=== PATIENT | female | born 1990 | race Caucasian/White ===

== ENCOUNTER 2019-04-28 20:00 | Inpatient (IN) | payer OTHER, SELFPAY ==
[2019-04-28 20:35] VITALS: BP 138/85
[2019-04-29 00:49] LABS: Add Manual Diff / Slide Review NO; Basophils Absolute Auto 100 /uL (0-100); Basophils Percent Auto 0.6 % (0-2); Eosinophils Absolute Auto 100 /uL (0-450); Eosinophils Percent Auto 0.8 % (2-4); Hematocrit 41.3 % (36-46); Hemoglobin 14.1 g/dL (12.0-16.0); Lymphocytes Absolute Auto 2300 /uL (1100-4500); Lymphocytes Percent Auto 18.3 % (25-40); Mean Corpuscular Hemoglobin 31.1 PG (26-34); Mean Corpuscular Volume 91.2 fL (80-100); Monocytes Absolute Auto 800 /uL (0-900); Monocytes Percent Auto 6.5 % (3-14); Neutrophils Absolute Auto 9200 /uL (1500-7000); Neutrophils Percent Auto 73.8 % (50-75); Platelet Count 157 X10^3/uL (150-400); Red Blood Cell Count 4.53 X10^6/uL (4.0-5.2); Red Cell Distribution Width 13.4 % (11.6-14.8); White Blood Cell Count 12.4 X10^3/uL (4.5-11.0)
[2019-04-29] MEDS: miSOPROStoL 25 MCG TABLET VAG (03:11)
--- NOTE | 2019-04-29 09:13 | PM.OBHP.1 ---
OB HPI Date/Time Date of admission: 04/28/19 Date Patient Seen: 04/29/19 Time Patient Seen: 07:30 History of Present Condition Chief complaint: induction : 1 Para: 0 Estimated Date of Delivery: 04/21/19 Estimated Gestational Age (weeks): 41w1d Narrative: Dolores Love is a 28 year old Indications Indication for induction OB: post dates History of Present care: good care Dating criteria: LMP confirmed by 1st trimester US Ultrasounds: normal 1st trimester US and normal mid trimester US Obstetrical complications: none Medical complications: none Preadmission Labs Blood type: A (+) positive -: Antibody screen: negative, GBS status: negative, HBsAG: negative, HIV: negative and RPR/VDLR: negative -: Chlamydia screen: not detected and Gonorrhea screen: not detected -: Rubella: immune and Varicella: immune HCT: 35.8 HCAB: negative Quad screen: Normal 1 hr GTT: 114 Evaluation Evaluation Baseline heart rate: 135 Variability: Moderate (11-25) monitor accelerations: Present monitor decelerations: Absent Contraction Frequency (minutes): 3 Uterine Contraction Intensity: Moderate Category of Tracing: I Cervical dilation (cm): 1 Cervical effacement (%): 50 station: -3 Laboratory results: Laboratory Tests 04/28/19 04/28/19 23:10 23:10 WBC 12.4 H RBC 4.53 Hgb 14.1 Hct 41.3 MCV 91.2 MCH 31.1 MCHC 34.0 RDW 13.4 Plt Count 157 Neut % (Auto) 73.8 Lymph % (Auto) 18.3 L [place] % (Auto) 6.5 Eos % (Auto) 0.8 L Baso % (Auto) 0.6 Neut # (Auto) 9200 H Lymph # (Auto) 2300 [place] # (Auto) 800 Eos # (Auto) 100 Baso # (Auto) 100 Blood Type A Positive Antibody Screen Negative PFSH Medical History (Updated 04/04/19 @ 15:20 by Lesley Farias RN) Allergic rhinitis (Acute) Generalized anxiety disorder (Acute) TMJ syndrome (Acute) Vertigo (Acute) Surgical History (Updated 04/04/19 @ 12:10 by Lesley Farias RN) S/P tympanotomy with insertion of tube (Acute ~1993) Social History marital status: household members: spouse pets and animals: Yes (Dog) education level: college (some college) 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.) current occupational exposures/hazards: No special cassidy needs: No Smoking Status: Never smoker alcohol intake: former substance use type: does not use Meds Home Medications and Allergies Home Medications Medication Instructions Recorded Confirmed Type prenat.vits,stone,ltl-goij-zfyee 1 tab PO DAILY 04/04/19 04/28/19 History Allergies Allergy/AdvReac Type Severity Reaction Status Date / Time Penicillins Allergy Intermediate Hives - Verified 04/04/19 12:29 full body shellfish derived Allergy Intermediate Hives to Verified 04/04/19 12:29 skin; Nausea seasonal allergy Allergy Intermediate Uncoded 04/04/19 11:45 Exam Narrative Exam Narrative: Gen: NAD, sitting comfortably in bed, appears well CV: RRR, no murmurs Resp: clear to auscultation bilaterally Abd: soft, nondistended, gravid, nontender Ext: trace edema Objective Labs Result Diagrams: 04/28/19 23:10 Labs: Laboratory Results - last 24 hr 04/28/19 04/28/19 23:10 23:10 WBC 12.4 H RBC 4.53 Hgb 14.1 Hct 41.3 MCV 91.2 MCH 31.1 MCHC 34.0 RDW 13.4 Plt Count 157 Neut % (Auto) 73.8 Lymph % (Auto) 18.3 L [place] % (Auto) 6.5 Eos % (Auto) 0.8 L Baso % (Auto) 0.6 Neut # (Auto) 9200 H Lymph # (Auto) 2300 [place] # (Auto) 800 Eos # (Auto) 100 Baso # (Auto) 100 Blood Type A Positive Antibody Screen Negative Assessment and Plan Assessment and Plan Assessment and Plan narrative: 28yo at 41w1d here for IOL for post-dates. No complications with . Pt was having nonpainful contractions at admission. She did have two prolonged decels overnight, with good recovery after oxygen and position changes. Pt now with reassuring FHT. Received single dose of cytotec overnight, with minimal cervical change. GBS negative, Rh positive. - Expectant management, anticipate - After discussion of risks vs benefits of different options including escalante catheter and pitocin - would not recommend cervidil/cytotec at this time due to frequency of contractions and FHT - decision made to proceed with escalante cather. Cather was inserted manually without any complications. Filled with 60cc of saline. Plan to leave in place, with gentle traction, for 12 hours or until falls out. Will start low-dose pitocin after pt eats breakfast. - FHT currently reassuring. Will keep with continuous monitoring due to prolonged decels. - Nitrous or epidural for pain control when pt desires. Encouraged to not get epidural while escalante in place, as still in early labor. - GBS negative, no antibiotic prophylaxis indicated
[2019-04-29] MEDS: OXYTOCIN PREMIX 30 UNIT/500 ML PLAST..BAG IV (10:43)
[2019-04-29] MEDS: LACTATED RINGERS 1,000 ML 100 ML IV ×3 (10:43→17:49)
--- NOTE | 2019-04-29 16:40 | PM.OBPNLAB ---
Date/Time Date Patient Seen: 04/29/19 Time Patient Seen: 04:15 Pain Control Pain control: tolerating well Pelvic Exam Dilation (cm): 5 Effacement (%): 60 station: -3 Amniotic membrane status: Ruptured Contractions Monitor mode: External Pitocin rate (mU/min): 4 Contraction frequency (min): 3 Contraction duration (min): 1 Contraction pattern: Regular Contraction intensity: Strong/Firm Status status: Category l Heart Rate Baseline: 130 Monitor Accelerations: Present Monitor Decelerations: Absent Monitor Variability: Moderate Assessment and Plan Comments: 28yo at 41w1d here for IOL for post-dates. No complications with . S/P Cytotec x1 overnight, then escalante this morning that fell out after approximately 6 hours. Now on pitocin. Pt with recurrent variable decels, with FHT now reassuring after position changes, oxygen, and decrease in pitocin. SROM at 15:30 with clear fluid. GBS negative, Rh positive. - Expectant management, anticipate . Fetus with virtually no descent thus far. Maternal pelvis feels adequate, but pt is very tense. - Continue pitocin, titrate as tolerated - FHT currently reassuring. May need IUPC with amnioinfusion if variable decels recurring - Nitrous or epidural for pain control when pt desires. - GBS negative, no antibiotic prophylaxis indicated
--- NOTE | 2019-04-29 21:38 | P.PNOB_ITS ---
Date/Time Date Patient Seen: 04/29/19 Time Patient Seen: 21:00 Pain Control Pain control: epidural Pelvic Exam Dilation (cm): 6 Effacement (%): 80 station: -1 Amniotic membrane status: Ruptured Contractions Monitor mode: External Contraction frequency (min): 4 Contraction pattern: Regular Contraction intensity: Strong/Firm Status status: Category ll Heart Rate Baseline: 130 Monitor Accelerations: Absent Monitor Decelerations: Late Monitor Variability: Minimal Comments: late, early and variable decels Assessment and Plan Comments: 28yo at 41w1d here for IOL for post-dates. No complications with . S/P one dose of cytotec overnight, escalante catheter that fell out after approximately 6 hours, and then pitocin. Pt with recurrent variable decels, and pitocin titrated down. IUPC placed to consider amnioinfusion, however variable decels resolved. Pt noted to have very inadequate contraction pattern. Attempted to titrate pitocin back up, however pt with prolonged deceleration. Pt then with minimal variability for prolonged period of time, with early, late, and variable decels intermixed. FHT have persistently been nonreassuring. No cervical change, and unable to restart pitocin. Due to nonreassuring heart tones, decision was made to proceed with primary c- section. Pt and her are in agreement with the plan. Risks vs benefits of the surgery were discussed. Pt is aware of risk of infection, bleeding, potential damage to other organs including bowel and bladder, and injury to fetus. The pt is agreeable to blood transfusion if medicated. Consent was signed and placed in her chart. Due to penicillin allergy with full-body hives, the pt will receive Gentamicin and Clindamycin for antibiotic prophylaxis before surgery.
--- NOTE | 2019-04-29 21:38 | PM.PREOP ---
Pre-operative Note Interval Note History & Physical reviewed/Exam performed by Physician: Yes Changes to H&P: No
[2019-04-29] MEDS: CLINDAMYCIN 900 MG/50 ML PIGGYBACK 50 MG IV (22:02)
[2019-04-29] MEDS: GENTAMICIN 290 MG in SODIUM CHLORIDE 0.9% 100 ML 107.25 ML IV (22:30)
--- NOTE | 2019-04-29 22:39 | SUR.OPER ---
Supine on Padded OR bed, head on pillow, safety belt at thigh, arms secured on padded arm boards at <90 degrees abduction. Bump under right buttock. Legs uncrossed with pillow under knees, gel pad to heels, tape over blanket to lower legs.
[2019-04-29] MEDS: METHYLERGONOVINE 0.2 MG/ML VIAL IM (22:52)
[2019-04-29] MEDS: ACETAMINOPHEN IV 1,000 MG/100 ML VIAL 400 MG IV (22:58)
--- NOTE | 2019-04-29 23:08 | SUR.OPER ---
7pound 2ounce viable baby boy born at 1041, placenta delivered at 1043, 9/9 Cord blood and placenta sent with OB RN
[2019-04-29 23:30] VITALS: BP 131/73; PULSE 103; RESP 13; TEMP 36.8; O2SAT 99
[2019-04-29 23:33] VITALS: BP 132/81; PULSE 95; RESP 14; O2SAT 99
[2019-04-29 23:37] VITALS: BP 128/80; PULSE 96; RESP 16; O2SAT 99
[2019-04-29 23:42] VITALS: BP 126/88; PULSE 96; RESP 16; O2SAT 97
--- NOTE | 2019-04-29 23:42 | P.OP_ITS ---
Operative Date/Time/Diagnoses Date of procedure: 04/29/19 Time of procedure: 22:30 Pre-op diagnosis: 41w1d gestation GBS negative Nonreassuring heart tones Post-op diagnosis: same Procedure & Clinicians Procedure: Primary Same procedure as scheduled: Yes Indications: Nonreassuring heart tones Surgeon: Dionne Mcghee Registry Np: Charu Lipscomb Click Yes if Unassisted: No Anesthesia Type: Epidural Operative Notes Findings: Normal uterus, ovaries, and tubes Closure Type: primary Specimen(s): none sent Applied: catheter Estimated Blood Loss (mL): 750 Blood products transfused: none Procedure in detail: OPERATIVE COURSE: The patient was taken to the operating room where epidural anesthesia was bolused. She was then prepared and draped in the normal sterile fashion in the dorsal supine position with a leftward tilt. Anesthesia was tested and found to be adequate. A Pfannensteil skin incision was then made with the scalpel and carried through to the underlying layer of fascia with the scalpel. The fascia was incised in the midline and the incision extended laterally with the Beaulieu scissors. The superior aspect of the fascial incision was then grasped with Les clamps, elevated, and the underlying rectus muscles dissected off bluntly and sharply where needed. Attention was then turned to the inferior aspect of the incision which, in a similar fashion, was grasped, tented up with Les clamps, and the rectus muscle dissected off bluntly and sharply with Beaulieu scissors. The rectus muscles were then in the midline, and the peritoneum was identified and entered bluntly. The peritoneal incision was then extended with good visualization of the bladder. The bladder blade was then inserted and the vesicouterine peritoneum identified, grasped with pick-ups and entered sharply with the Metzenbaum scissors. The incision was then extended laterally and the bladder flap created digitally. The bladder blade was then reinserted and the lower uterine segment incised in a transverse fashion with the scalpel. The uterine incision was then extended superolaterally by pulling superolaterally on both sides. The bladder blade was removed the infant's head was flexed out of OA position and delivered atraumatically. There was no nuchal cord. The baby cried spontaneously. The nose and mouth were suctioned with bulb suction and the cord was clamped and cut. The was handed off to the waiting nursing staff. Cord blood was collected for Rh status. The placenta was then delivered with gentle cord traction. The uterus was then cleared of all clots and debris. The uterine incision was repaired with O- Vicryl in a running, locked fashion. A second layer of the same suture was used to obtain excellent hemostasis, with an extra figure-of eight used at the left side of the incision. The uterus was noted to have moderate atony, and methergine was given with good response. The gutters were cleared of all clots. Hysterotomy was investigated and found to be hemostatic. The bladder flap was closed with 2-O Chromic. The peritoneum was closed with 3-O Vicryl. The fascia was reapproximated with O Vicryl in a running fashion. The subcutaneous tissue was reapproximated with 3-O Vicryl. The skin was closed with 4-O Vicryl. When closing the subcutaneous tissue, the pts BP was noted to be elevated to > 180 systolic. She received 2x 10mg Labetalol with good response. Her BP then remained in normal range. This was in part thought to be due to her shaking from the epidural and delivery. ROM APPEARANCE: Clear BABY A DELIVERY TIME: 22:41 BABY A OUTCOME: Viable BABY A SEX: Male BABY A WEIGHT: 7lb1.6oz, 3220g BABY A NUCHAL CORD: No BABY A # CORD VESSELS: 3 BABY A 1 MINUTE: 9 BABY A 5 MINUTES: 9 PLACENTA DELIVERY TIME: 22:42 PLACENTAL DELIVERY TYPE: Spontaneous PLACENTA APPEARANCE: Intact SPONGE AND NEEDLE COUNTS: Correct x3. DRESSING: Aquacel ANTICOAGULATION: SCDs applied prior to Surgery Preop antibiotics given (see MAR). The patient was taken to recovery room having tolerated procedure well. Complications: none Post-operative Condition: stable Disposition: PACU Plan for aftercare: Normal postoperative care Monitor BPs closely. If persistently elevated, will need pre-eclampsia work-up.
[2019-04-29 23:47] VITALS: BP 132/79; PULSE 97; RESP 16; TEMP 37.7; O2SAT 99
--- NOTE | 2019-04-30 00:03 | SUR.PHASEI ---
Stable pacu stay- to BC, left in stable condition.
[2019-04-30] MEDS: KETOROLAC 30 MG/ML VIAL IV ×2 (00:15→06:19)
[2019-04-30] MEDS: LACTATED RINGERS 1,000 ML 100 ML IV (03:03)
[2019-04-30 06:24] LABS: Hematocrit 31.4 % (36-46); Hemoglobin 10.7 g/dL (12.0-16.0)
[2019-04-30] MEDS: DOCUSATE 250 MG CAPSULE PO (09:42)
[2019-04-30] MEDS: LANOLIN OINT 7 GM 1 APPLIC TOP (09:43)
[2019-04-30] MEDS: OXYCODONE/ACETAMINOPHEN 5/325 TABLET 2 TAB PO (09:52)
[2019-04-30] MEDS: PRENATAL VIT,CALC/IRON/FOLIC 1 TABLET 1 TAB PO (09:56)
--- NOTE | 2019-04-30 11:30 | PM.OBPN.1 ---
Subjective - OB Subjective Date Patient Seen: 04/30/19 Time Patient Seen: 11:00 Interval history: Pt reports that she is overall doing well. She denies significant pain, primarily cramping from her uterus qi down. Her escalante remains in place - she has not yet ambulated or voided. She has passed flatus. She is with good latch, minimal nipple tenderness. Exam Vital Signs (past 8 hours): Oxygen Delivery Method Room Air Narrative Exam Narrative: Gen: NAD, sitting comfortably in bed, appears well CV: RRR, no murmurs Resp: clear to auscultation bilaterally Abd: soft, nondistended, appropriately tender to palpation, fundus firm and below the umbilicus, normoactive bowel sounds Ext: no edema Objective Labs Result Diagrams: 04/30/19 06:15 Labs: Laboratory Results - last 24 hr 04/30/19 06:15 Hgb 10.7 L Hct 31.4 L Assessment & Plan Plan Comments: 28yo POD #1 s/p primary for nonreassuring heart tones. Pt and baby both doing well. IV infiltrated overnight. - Transition to only PO pain medication. Received 2 doses Toradol. - Normal care - Encouraged ambulation today - Continue support Time Spent With Patient Time: Total time spent is greater than 50% in coordination of care (as documented) at patient's floor/unit and/or counseling patient: Time with patient: 25 - 35 minutes
[2019-04-30] MEDS: IBUPROFEN 600 MG TABLET PO ×3 (12:12→23:59)
[2019-04-30] MEDS: OXYCODONE/ACETAMINOPHEN 5/325 TABLET 1 TAB PO ×3 (14:10→22:01)
[2019-05-01] MEDS: OXYCODONE/ACETAMINOPHEN 5/325 TABLET 1 TAB PO ×4 (01:52→14:08)
[2019-05-01] MEDS: IBUPROFEN 600 MG TABLET PO ×2 (05:57→12:15)
[2019-05-01] MEDS: PRENATAL VIT,CALC/IRON/FOLIC 1 TABLET 1 TAB PO (08:25)
[2019-05-01] MEDS: DOCUSATE 250 MG CAPSULE PO (08:25)
--- NOTE | 2019-05-01 10:48 | PM.OBDS.1 ---
Discharge Providers Provider Date of admission: 04/28/19 20:00 Discharge Date: 05/01/19 Primary care physician: Magnolia Butler MD Consults: 04/30/19 00:15 Consult to [employer] Routine Comment: Discharge provider: Dionne Mcghee MD Summary Hospital Course Date Patient Seen: 05/01/19 Time Patient Seen: 10:30 Procedures: Primary Hospital Course: The pt presented for IOL for post-dates at 41w0d. She received one dose of cytotec overnight, and then a escalante catheter was placed that fell out after approximately 6 hours. The pt was then started on pitocin. The rate had to be continuously adjusted due to variable decels. IUPC was placed to consider amnioinfusion, however variable decels resolved. The pt noted to have a very inadequate contraction pattern. Attempts were made to titrate back up the pitocin, however FHT did not support this with minimal variability and a mixture of early, variable, and late decelerations. Due to this, the decision was made to proceed with primary . The surgery was without complications, and the pt delivered a viable baby boy at 22:41 with APGARs 9/9. At the end of surgery, the pts BP was noted to be elevated and she received a total of 20mg of IV Labetalol. Her BPs normalized, and remained in normal range for the remainder of her course. Elevated BPs were thought to be due to significant shaking at the end of surgery. , there were no complications. At the time of discharge she was voiding, passing flatus, and ambulating without difficulty. Her pain was adequately controlled. She was with good latch. Her lochia was appropriate. She will f/u in clinic in 1 week for incision check. Peripartum Data Infant Delivery Method: Section Procedures: Primary complications: none 1: Gender: Male Disposition of : home Status at Discharge Cognitive/behavioral status at discharge: oriented Functional status at discharge: independent ambulation Overall status at discharge: patient is progressing back to baseline Time Spent with Patient Time attestation: Total time spent providing and/or coordinating discharge services: Time spent: Greater than 30 minutes Objective Labs Result Diagrams: 04/30/19 06:15 Exam Vital Signs (past 8 hours): Oxygen Delivery Method Room Air Narrative Exam Narrative: Gen: NAD, sitting comfortably in bed, appears well CV: RRR, no murmurs Resp: clear to auscultation bilaterally Abd: soft, nondistended, appropriately tender to palpation, fundus firm and below the umbilicus, normoactive bowel sounds Ext: no edema Discharge Plan Discharge Plan Patient Disposition: Home Discharge orders & Medications Prescriptions: New acetaminophen 325 mg Tablet 650 mg PO Q6HR PRN (Reason: Fever/Mild Pain (1-3)) Qty: 60 RF: 0 oxycodone-acetaminophen 5-325 mg Tablet 1 tab PO Q4HR PRN (Reason: Pain, Moderate (4-6)) Qty: 30 RF: 0 ibuprofen 600 mg Tablet 600 mg PO Q6HR PRN (Reason: Fever/Mild Pain (1-3)) Qty: 60 RF: 0 docusate sodium 250 mg Capsule 250 mg PO DAILY Qty: 30 RF: 0 Vnx-K-Mohghj Cream 1 applic topical PRN PRN (Reason: ) Qty: 30 RF: 0 Continued prenat.vits,stone,shd-qnrh-upyif Tablet 1 tab PO DAILY RF: 0 Follow up/Referrals: Magnolia Butler MD [Primary Care Provider] - Dionne Mcghee MD [Physician] - 05/06/19 2:45 pm Diet/Activity/Treatments Diet: Regular Skin/Wound/Dressing Care Report to your healthcare provider any signs of infection, such as:: chills, fever, increased pain, unusual drainage and unusual redness Visit Report/Discharge Packet Instructions: DI for Stand Alone Forms: Discharge: Care Visit Report Forms: Patient Portal/API, Stroke Signs & Symptoms Discharge Data Primary Care Provider: Magnolia Butler
[2019-05-01 10:56] VITALS: BP 132/79; PULSE 97; RESP 16; TEMP 37.7
== END 2019-05-01 16:00 | disposition home or self-care (01) | DRG 788 ==
PROVIDERS: Admitting Provider Family Medicine; PCP Family Medicine; Visit Provider Family Medicine
PROC: 10D00Z1 Extraction of Products of Conception, Low, Open Approach (ICD-10-PCS; CPT 59514; principal; 2019-04-29 22:10)
DX: O48.0 Post-term pregnancy (principal); O63.0 Prolonged first stage (of labor); O36.8330 Maternal care for abnormalities of the fetal heart rate or rhythm, third trimester, not applicable or unspecified; Z3A.41 41 weeks gestation of pregnancy; Z37.0 Single live birth
CPT/HCPCS: 01967; 01968; 36415; 59050; 59200; 59514; 59515; 85014; 85018; 85025; 86850; 86900; 86901; J0131; J1885; J2210; J2590; J3010

== ENCOUNTER → 2022-03-11 15:15 | Outpatient (CLI) | payer OTHER, SELFPAY ==
[2022-03-11 15:30] LABS: Add Manual Diff / Slide Review NO; Basophils Absolute Auto 100 /uL (0-100); Basophils Percent Auto 0.6 % (0-2); Eosinophils Absolute Auto 100 /uL (0-450); Eosinophils Percent Auto 1.1 % (2-4); Hematocrit 35.4 % (36-46); Hemoglobin 12.1 g/dL (12.0-16.0); Lymphocytes Absolute Auto 2500 /uL (1100-4500); Lymphocytes Percent Auto 24.4 % (25-40); Mean Corpuscular HGB Conc 34.1 % (30-36); Mean Corpuscular Hemoglobin 30.7 PG (26-34); Mean Corpuscular Volume 89.9 fL (80-100); Monocytes Absolute Auto 400 /uL (0-900); Monocytes Percent Auto 3.8 % (3-14); Neutrophils Absolute Auto 7100 /uL (1500-7000); Neutrophils Percent Auto 70.1 % (50-75); Platelet Count 273 X10^3/uL (150-400); Red Blood Cell Count 3.94 X10^6/uL (4.0-5.2); Red Cell Distribution Width 13.2 % (11.6-14.8); White Blood Cell Count 10.1 X10^3/uL (4.5-11.0)
[2022-03-13 06:33] LABS: RPR Screen Non Reactive (Non Reactive)
[2022-03-14 08:08] LABS: Varicella IgG Antibody 307 index (Immune >165)
[2022-03-14 20:44] LABS: HIV 1 & 2 Ab/Ag 4th Gen Combo NEGATIVE (NEGATIVE); Hep C Virus Ab w/Reflex Quant NEGATIVE s/c (NEGATIVE); Hepatitis B Surface Antigen NEGATIVE s/c (NEGATIVE); Rubella Antibody IgG 4.4 IU/mL (>15)
== END ==
PROVIDERS: Referring Provider Obstetrics & Gynecology; Visit Provider Obstetrics & Gynecology
DX: Z34.81 Encounter for supervision of other normal pregnancy, first trimester (principal)
CPT/HCPCS: 36415; 80055; 86787; 86803; 86850; 86900; 86901; 87389

== ENCOUNTER → 2022-04-08 13:01 | Outpatient (CLI) | payer OTHER, SELFPAY ==
[2022-04-08 13:28] LABS: Specimen Label NATERA
[2022-04-08 14:31] LABS: Add Manual Diff / Slide Review NO; Basophils Absolute Auto 100 /uL (0-100); Basophils Percent Auto 0.6 % (0-2); Eosinophils Absolute Auto 100 /uL (0-450); Hemoglobin 12.1 g/dL (12.0-16.0); Lymphocytes Absolute Auto 2400 /uL (1100-4500); Lymphocytes Percent Auto 22.6 % (25-40); Mean Corpuscular HGB Conc 33.6 % (30-36); Mean Corpuscular Hemoglobin 30.9 PG (26-34); Mean Corpuscular Volume 91.8 fL (80-100); Monocytes Absolute Auto 600 /uL (0-900); Monocytes Percent Auto 5.2 % (3-14); Neutrophils Absolute Auto 7500 /uL (1500-7000); Neutrophils Percent Auto 70.6 % (50-75); Platelet Count 217 X10^3/uL (150-400); Red Blood Cell Count 3.92 X10^6/uL (4.0-5.2); Red Cell Distribution Width 13.7 % (11.6-14.8); White Blood Cell Count 10.7 X10^3/uL (4.5-11.0)
== END ==
PROVIDERS: Referring Provider Obstetrics & Gynecology; Visit Provider Obstetrics & Gynecology
DX: Z34.82 Encounter for supervision of other normal pregnancy, second trimester (principal); D64.9 Anemia, unspecified; Z34.81 Encounter for supervision of other normal pregnancy, first trimester; Z3A.12 12 weeks gestation of pregnancy
CPT/HCPCS: 36415; 81003; 85025; 87086

== ENCOUNTER → 2022-05-07 15:15 | Outpatient (CLI) | payer OTHER, SELFPAY ==
[2022-05-07 21:16] LABS: Urine N gonorrhoeae NOT DETECTED
[2022-05-07 22:01] LABS: Urine Chlamydia NOT DETECTED
== END ==
PROVIDERS: Visit Provider Obstetrics & Gynecology
DX: Z34.82 Encounter for supervision of other normal pregnancy, second trimester (principal); Z3A.16 16 weeks gestation of pregnancy
CPT/HCPCS: 87491; 87591

== ENCOUNTER → 2022-05-07 16:04 | Outpatient (CLI) | payer OTHER, SELFPAY ==
[2022-05-09 22:07] LABS: AFP Value 32.6 ng/mL (.); Gest Age on Col Date 16.3 weeks (.); Insulin Dep Diabetes No (.); OSBR Risk 1IN 10000 (.); Results Report (.); Test Results *Screen Negative* (.)
== END ==
PROVIDERS: Referring Provider Obstetrics & Gynecology; Visit Provider Obstetrics & Gynecology
DX: Z34.82 Encounter for supervision of other normal pregnancy, second trimester (principal); Z3A.16 16 weeks gestation of pregnancy
CPT/HCPCS: 82105; 87491; 87591

== ENCOUNTER → 2022-06-02 10:21 | Outpatient (CLI) | payer OTHER, SELFPAY ==
--- NOTE | 2022-06-02 10:22 | DI.US.S_ITS ---
PROCEDURE: US OB >= 14 WEEKS FETUS INDICATIONS: ANATOMY OUTSIDE/PRIOR DATING DATA: Last menstrual period (LMP): 01/13/2022. LMP-based estimated date of delivery (YOBANI): 10/20/2022. First dating scan (date and location): 03/11/2022. Estimated date of delivery (YOBANI) from first dating scan: 10/19/2022. The calculations are made using the clinical YOBANI of 10/20/2022. TECHNIQUE: Real-time scanning was performed of the fetus, with image documentation and biometric measurements. Endovaginal scanning: Not performed COMPARISON: [facility], , OB <= 14 WEEKS FETUS, 03/11/2022, 15:06. [facility], , OB <= 14 WEEKS FETUS, 04/08/2022, 12:56. FINDINGS: General: A single living intrauterine gestation is present. Presentation: Breech. Placenta: Placental position is posterior fundal , without previa. Amniotic fluid index: 9.2 cm, normal range is 5-24 cm. Single deepest vertical pocket is 3.0 cm. heart rate: 153 beats per minute. Maternal cervical canal: 4.3 cm long. Normal lower limit is 2.5 cm. biometrics: Biparietal diameter: 4.7 cm, 20 weeks 1 day Head circumference: 18.0 cm, 20 weeks 3 days Abdominal circumference: 15.7 cm, 20 weeks 6 days Femur length: 3.6 cm, 21 weeks 2 days Clinically estimated gestational age: 20 weeks 0 days Composite gestational age from present scan: 20 weeks 5 days Estimated weight and percentile: 386 g, 90th percentile Anatomic survey: Neuro: Ventricles are non-dilated at less than 10 mm. Cisterna magna is normal at 3-11 mm. Cerebellum is normal in size and morphology. Nuchal skin fold: Normal at less than 6 mm between 14-21 weeks gestational age. Face: Nose and lips, facial profile are normal. Spine: No evidence for spina bifida. Heart: 4-chambered heart is present, with normal ventricular outflow tracts. Diaphragm: Diaphragm is intact. Stomach: Left-sided stomach is present. Kidneys: No hydronephrosis. Normal is less than 5 mm in 2nd trimester, less than 7 mm in 3rd trimester. Cord: 3-vessel cord has orthotopic insertion. Bladder: Normal in size. Extremities: All 4 extremities identified. IMPRESSION: 1. Single living intrauterine . 2. Estimated weight is at the 90th percentile. 3. Normal 2nd trimester anatomy survey. No anatomic abnormalities detected at this time. We strive to produce accurate, complete, and clear reports of imaging services. To assist us in improving patient care, this report was composed using standard report templates and voice recognition software. Therefore, it may contain abnormal punctuation, insertions and/or omissions. Occasional wrong-word or sound-alike substitutions may occur. Though we review the report and make efforts to correct it, we do recommend that the report be read carefully in proper context to recognize any text inaccuracies. Dictated by: Julio Schwartz M.D. on 06/02/2022 at 18:08 Approved by: Julio Schwartz M.D. on 06/02/2022 at 18:13
== END ==
PROVIDERS: Referring Provider Obstetrics & Gynecology; Visit Provider Obstetrics & Gynecology
DX: Z34.92 Encounter for supervision of normal pregnancy, unspecified, second trimester (principal); Z3A.20 20 weeks gestation of pregnancy
CPT/HCPCS: 76811

== ENCOUNTER → 2022-07-29 14:22 | Outpatient (CLI) | payer OTHER, SELFPAY ==
[2022-07-29 16:31] LABS: Hematocrit 33.6 % (36-46); Hemoglobin 11.6 g/dL (12.0-16.0)
[2022-07-29 17:38] LABS: GTT (PREG) 1 Hour PP 50gm Dose 99 mg/dL (76-139)
== END ==
PROVIDERS: Referring Provider Obstetrics & Gynecology; Visit Provider Obstetrics & Gynecology
DX: Z34.82 Encounter for supervision of other normal pregnancy, second trimester (principal); Z3A.26 26 weeks gestation of pregnancy
CPT/HCPCS: 36415; 82950; 85014; 85018

== ENCOUNTER 2022-09-08 15:06 | Outpatient (CLI) | payer OTHER, SELFPAY ==
[2022-09-08 15:33] LABS: Appearance Urine UA CLEAR; Bilirubin Urine UA NEGATIVE (NEGATIVE); Color Urine UA YELLOW; Glucose Urine UA NEGATIVE (Negative); Ketones Urine UA TRACE (NEGATIVE); Leukocyte Esterase Urine UA NEGATIVE (NEGATIVE); Nitrite Urine UA NEGATIVE (Negative); Occult Blood Urine UA NEGATIVE (Negative); Protein Urine UA NEGATIVE (Negative); Specific Gravity Urine UA <=1.005 (1.000-1.035); Urobilinogen Urine UA 0.2 E.U./dL (0.2)
[2022-09-08 15:43] LABS: pH Urine UA 6.5 (4.5-8.0)
[2022-09-08 15:47] LABS: Bacteria Urine Occasional (0-1); Culture Indicated Urine Cult Not Indicated; RBC Urine None Seen (0-5/HPF); Squamous Epithelial Cell Urine 1-5 /HPF (0-5/HPF); WBC Urine 0-1/HPF (0-5/HPF)
--- NOTE | 2022-09-08 15:53 | PM.OBTRLD ---
Visit Information Visit Information Date of evaluation: 09/08/22 Primary OB Provider: Dolly Colon On-call OB Provider: Dionne Mcghee Comments/Additional reasons for admission: 32yo at 34w0d here for contractions. Pt reports having abdominal tightening with some back discomfort for the past 24hrs. The tightening is not painful. She had nausea and vomiting last night, none this morning. She is working on staying hydrated. She denies any vaginal bleeding, LOF. She is feeling her baby move regularly. [facility] Medical History (Updated 06/03/22 @ 11:29 by Gino Madrigal MD) Allergic rhinitis Anxiety Breast pain, left Generalized anxiety disorder Heart palpitations TMJ syndrome Vertigo Surgical History (Updated 03/12/22 @ 07:39 by Dolly Colon MD) S/P S/P tympanotomy with insertion of tube (~1993) Family History (Updated 02/27/22 @ 12:18 by Yancy Man RN) Mother Mitral valve prolapse Tachycardia Hyperlipidemia Brother Tachycardia Mitral valve prolapse Hyperlipidemia Family/Other Breast cancer Grandmother Metastatic cancer Grandfather Congestive heart failure Heart attack Lung disease Hyperlipidemia Family/Other Heart attack Social History marital status: number of children: 1 household members: spouse and children lives independently: Yes housing: house pets and animals: Yes (Dog) education level: college (some college) 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.) current occupational exposures/hazards: No special cassidy needs: No travel history: recent ([place]) seatbelt use: always water heater temp set < 120 deg: No (Will adjust ) working smoke detector in home: Yes fire extinguisher in home: Yes carbon monox detector in home: Yes firearms in home: No do you feel safe at home: Yes Smoking Status: Never smoker second hand exposure: No alcohol intake: former (rarely when not ) substance use type: does not use during the past year weight has: remained stable well-balanced diet: daily or most days daily servings fruits/ve-4 caffeine: Yes Type(s) of exercise: walking frequency: daily duration: 30-45 minutes/day Objective Labs Labs: Laboratory Results - last 24 hr 09/08/22 15:15 Urine Color Yellow Urine Appearance Clear Urine pH 6.5 Ur Specific [place] <=1.005 Urine Protein Negative Urine Glucose (UA) Negative Urine Ketones Trace H Urine Occult Blood Negative Urine Nitrate Negative Urine Bilirubin Negative Urine Urobilinogen 0.2 Ur Leukocyte Esterase Negative Urine RBC None seen Urine WBC 0-1/hpf Ur Squamous Epith Cells 1-5 /hpf Urine Bacteria Occasional (0-1) Ur Culture Indicated? Cult not indicated Evaluation Evaluation Baseline heart rate: 120 Variability: Moderate (11-25) monitor accelerations: Present Monitor Decelerations: Absent Category of Tracing: Reactive Diagnosis, Plan/Disposition Plan/Disposition Plan: 32yo at 34w0d here for contractions. They are not painful for the patient. Only 3 contractions on 30+ minutes of monitoring, still not painful for the patient. U/A without UTI. Stable for discharge home. Discussed hydration. OB Disposition: home
== END 2022-09-08 16:06 | disposition home or self-care (01) ==
LOC: OB 09-10 11:05
PROVIDERS: Referring Provider Family Medicine; Visit Provider Family Medicine
DX: O47.03 False labor before 37 completed weeks of gestation, third trimester (principal); Z3A.34 34 weeks gestation of pregnancy
CPT/HCPCS: 59025; 81001; G0378; G0379

== ENCOUNTER → 2022-10-01 11:19 | Outpatient (CLI) | payer OTHER, SELFPAY ==
[2022-10-02 10:26] LABS: Strep Grp B PCR NEG for Grp B Strep
== END ==
PROVIDERS: Visit Provider Obstetrics & Gynecology
DX: Z34.83 Encounter for supervision of other normal pregnancy, third trimester (principal); Z3A.37 37 weeks gestation of pregnancy
CPT/HCPCS: 87653

== ENCOUNTER 2022-10-13 05:54 | Inpatient (IN) | payer OTHER, SELFPAY ==
[2022-10-13 07:24] LABS: Add Manual Diff / Slide Review NO; Basophils Absolute Auto 0 /uL (0-100); Basophils Percent Auto 0.3 % (0-2); Eosinophils Absolute Auto 100 /uL (0-450); Hematocrit 35.4 % (36-46); Hemoglobin 12.1 g/dL (12.0-16.0); Lymphocytes Absolute Auto 1900 /uL (1100-4500); Lymphocytes Percent Auto 19.6 % (25-40); Mean Corpuscular HGB Conc 34.4 % (30-36); Mean Corpuscular Hemoglobin 30.9 PG (26-34); Monocytes Absolute Auto 700 /uL (0-900); Neutrophils Absolute Auto 7100 /uL (1500-7000); Neutrophils Percent Auto 72.1 % (50-75); Platelet Count 161 X10^3/uL (150-400); Red Blood Cell Count 3.93 X10^6/uL (4.0-5.2); Red Cell Distribution Width 14.1 % (11.6-14.8); White Blood Cell Count 9.8 X10^3/uL (4.5-11.0)
--- NOTE | 2022-10-13 10:21 | PM.OBHP.IH.1 ---
OB HPI Date/Time Date of admission: 10/13/22 Date Patient Seen: 10/13/22 Time Patient Seen: 10:21 History of Present Condition Chief complaint: Section YOBANI Calculator Estimated Delivery Date Method Current WG Current Estimate 10/20/22 LMP (Uncertain) 39w 0d Other Estimates 10/19/22 Ultrasound #1 39w 1d Estimated Gestational Age (weeks): 30 : 2 Para: 1 Narrative: Patient is a 32-year-old 2 para 1 who presents at 39 weeks gestation for a scheduled repeat section. care: good care, initiated at week # (8), number of visits (11) and pounds weight gain (36) Dating criteria OB: LMP confirmed by 1st trimester US Ultrasounds: normal 1st trimester US and normal mid trimester US Obstetrical complications: none Medical complications OB: none Indications Operative indications ( section): previous uterine surgery Preadmission Labs Last OB Lab Results: Blood Type A Positive 10/13/22 06:11 Antibody Screen Negative 10/13/22 06:11 Hematocrit 35.4 % (36-46) L 10/13/22 06:11 Hemoglobin 12.1 g/dL (12.0-16.0) 10/13/22 06:11 Hepatitis B Surface Antigen Negative s/c (NEGATIVE) 03/11/22 15:18 Hepatitis C Antibody Negative s/c (NEGATIVE) 03/11/22 15:18 Rubella Antibody 4.4 IU/mL (>15) L 03/11/22 15:18 Varicella-Zoster IgG Antibody 307 index (Immune >165) 03/11/22 15:18 Glucose 1 Hour 99 mg/dL (76-139) 07/29/22 14:28 Group B Streptococcus (PCR) Neg for grp b strep 10/01/22 11:19 -: Chlamydia screen: negative, Gonorrhea screen: negative and Urine: negative -: PAP smear: Normal (2020) Genetic Screens: Cell-free DNA: Normal and Alpha-fetoprotein: Normal External Labs -: Urine: negative Prior (ies) Past Pregnancies Del. Date GA/Weeks Labor Lgth Wt Sex Route Outcome Anesthesia Place Delv Breastfeed Preg Comp Name 04/29/19 41 24 7 lb 2 oz Male live - full term spinal IH 1 year none [facility] Delivery Date: 04/29/19 Last Updated by: Yancy Man RN 1st trimester perigestational hemorhage Evaluation Evaluation Baseline heart rate: 135 Variability: Moderate (11-25) monitor accelerations: Present Monitor Decelerations: Absent PFSH Medical History (Updated 10/12/22 @ 11:33 by Sindy Black MD) Allergic rhinitis Anxiety Breast pain, left Generalized anxiety disorder Heart palpitations TMJ syndrome Vertigo Surgical History (Updated 03/12/22 @ 07:39 by Dolly Colon MD) S/P S/P tympanotomy with insertion of tube (~1993) Family History (Updated 02/27/22 @ 12:18 by Yancy Man RN) Mother Mitral valve prolapse Tachycardia Hyperlipidemia Brother Tachycardia Mitral valve prolapse Hyperlipidemia Family/Other Breast cancer Grandmother Metastatic cancer Grandfather Congestive heart failure Heart attack Lung disease Hyperlipidemia Family/Other Heart attack Social History marital status: number of children: 1 household members: spouse and children lives independently: Yes housing: house pets and animals: Yes (Dog) education level: college (some college) 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.) current occupational exposures/hazards: No special cassidy needs: No travel history: recent ([place]) seatbelt use: always water heater temp set < 120 deg: No (Will adjust ) working smoke detector in home: Yes fire extinguisher in home: Yes carbon monox detector in home: Yes firearms in home: No do you feel safe at home: Yes Smoking Status: Never smoker second hand exposure: No alcohol intake: former (rarely when not ) substance use type: does not use during the past year weight has: remained stable well-balanced diet: daily or most days daily servings fruits/ve-4 caffeine: Yes Type(s) of exercise: walking frequency: daily duration: 30-45 minutes/day Meds Home Medications and Allergies Home Medications Medication Instructions Recorded Confirmed Type prenat.vits,stone,ajj-[id number]-[id number] 1 tab PO DAILY 04/04/19 10/01/22 History hydroxyzine HCl 25 mg tablet 25 mg PO TID PRN anxiety #30 tabs 03/11/22 10/01/22 Rx ondansetron 4 mg disintegrating 4 mg PO Q6H PRN nausea and 11/22/22 06/14/23 Rx tablet vomiting #14 tabs ferrous sulfate 142 mg (45 mg 142 mg PO DAILY 06/30/22 10/01/22 History iron) tablet,extended release (Slow Fe) Double Electric Breast Pump #1 ea 10/01/22 10/01/22 Rx Allergies Allergy/AdvReac Type Severity Reaction Status Date / Time Penicillins Allergy Intermediate Hives - Verified 10/01/22 09:43 full body shellfish derived Allergy Intermediate Hives to Verified 10/01/22 09:43 skin; Nausea seasonal allergy Allergy Intermediate Uncoded 10/01/22 09:43 OB Exam Narrative Exam Narrative: Generally: Patient is sitting up in bed, no acute distress Lungs: Clear to auscultation bilaterally Cardiovascular: Regular rate and rhythm Fundal height: 39 cm Estimated weight: 7-1/2 lb Extremities: No edema Objective Labs 10/13/22 06:11 Labs: Laboratory Results - last 24 hr 10/13/22 10/13/22 06:11 06:11 WBC 9.8 RBC 3.93 L Hgb 12.1 Hct 35.4 L MCV 90.0 MCH 30.9 MCHC 34.4 RDW 14.1 Plt Count 161 Neut % (Auto) 72.1 Lymph % (Auto) 19.6 L Sequoyah % (Auto) 7.0 Eos % (Auto) 1.0 L Baso % (Auto) 0.3 Neut # (Auto) 7100 H Lymph # (Auto) 1900 Sequoyah # (Auto) 700 Eos # (Auto) 100 Baso # (Auto) 0 Blood Type A Positive Antibody Screen Negative Assessment and Plan Assessment and Plan Assessment and Plan narrative: Assessment: 32-year-old 2 para 1 at 39 weeks gestation Previous section Plan: Repeat low-transverse section The risks, benefits, and alternatives to the procedure were explained to the patient. The risks including bleeding, infection, injury to the bowel, bladder, or ureters. She understands these risks and agrees to proceed. A full par Q was held and consent form was signed. Time Spent with Patient Total time spent with greater than 50% in coordination of care (as documented) at patient's floor/unit and/or counseling patient:: less than 15 minutes
[2022-10-13] MEDS: CITRIC ACID/SODIUM CITRATE 15 ML SOLUTION 30 ML PO (10:30)
--- NOTE | 2022-10-13 10:34 | PM.PREOP ---
Pre-operative Note COVID-19 Criteria for continued procedure: Non-surgical alternatives not available or appropriate per current SOC Interval Note History & Physical reviewed/Exam performed by Physician: Yes Changes to H&P: No H&P completed within 30 days and has changed as indicated here:: 10/13/22
[2022-10-13] MEDS: CEFAZOLIN 2 GM/100 ML PREMIX 100 ML IV (10:58)
--- NOTE | 2022-10-13 11:14 | SUR.OPER ---
Supine on padded OR bed, head on pillow, arms secured on padded arm boards at <90 degrees abduction, bump under right hip, legs uncrossed, safety belt at thigh.
[2022-10-13] MEDS: LACTATED RINGERS 1,000 ML 999 ML IV (11:28)
[2022-10-13] MEDS: TRIAMCINOLONE 40 MG/ML VIAL IM (11:41)
--- NOTE | 2022-10-13 11:46 | SUR.OPER ---
BABY GIRL DELIVERED @ 1112. APGARS 8/9.
[2022-10-13 12:05] VITALS: BP 111/66; PULSE 84; RESP 16; TEMP 36.4; O2SAT 100
--- NOTE | 2022-10-13 12:09 | PM.OBCS.1 ---
Operative Date/Time/Diagnoses Date of procedure: 10/13/22 Time of procedure: 12:09 Pre-op diagnosis: Thirty-nine weeks gestation Previous section Keloid scar Post-op diagnosis: same Procedure & Clinicians Procedure: Repeat low-transverse section Keloid scar revision Same procedure as scheduled: Yes Indications: 39 weeks gestation Previous section Keloid scar of the Pfannenstiel incision Surgeon: Dolly Colon Click Yes if Unassisted: No Map Drafter: Dionne Mcghee Reason for Map Drafter: She assisted with entry into the abdomen and uterus with retraction. She assisted with delivery of the infant with fundal pressure. She assisted with closure of the uterus and abdomen with retraction, clipping of suture, and closure of the contralateral fascia. Anesthesia Type: Spinal Operative Notes Findings: Live female infant in LOT position Normal uterus, tubes and ovaries Keloid scar of the Pfannenstiel incision Closure Type: primary Specimen(s): cord blood Intraoperative meds administered: Duramorph, Ketorolac and Pitocin Applied: Catheter Estimated Blood Loss (mL): 300 Blood products transfused: none Procedure in detail: The patient was taken to the operating room where she was placed in the seated position. Spinal anesthesia with Duramorph was administered. The patient was then placed in the dorsal supine position with a leftward tilt. She was prepped and draped in the usual sterile fashion. A timeout was performed. After spinal analgesia was found to be adequate, an elliptical incision was made around the previous incision and it was excised. The incision was then carried through to the underlying layer fascia. The fascia was nicked in the midline, and the incision extended bilaterally with the Beaulieu scissors. The superior aspect of the fascial incision was grasped with a Candido clamps, elevated, and the underlying rectus muscles dissected off sharply and bluntly. Attention was then turned to the inferior aspect of this incision which in a similar fashion was grasped with a Candido clamps, elevated, and the underlying rectus muscles dissected off sharply and bluntly. The rectus muscles were in the midline. The peritoneum was identified, grasped between 2 hemostats, and entered sharply with the Metzenbaum scissors. This incision was extended superiorly and inferiorly with good visualization of the bladder. The bladder blade was inserted. The vesicouterine peritoneum was identified, grasped with the pickup, and entered sharply with the Metzenbaum scissors. This incision was extended bilaterally, and the bladder flap was created digitally. The bladder blade was reinserted. The lower uterine segment was incised in a transverse fashion with the scalpel. Upon entering the amniotic sac there was a small amount of clear amniotic fluid. The 's head was delivered without difficulty. The nose and mouth were suctioned with bulb suction. The remainder of the body delivered without difficulty. The cord was double clamped and cut after 1 minute. The infant was handed off to waiting RN and RT. Cord bloods were obtained. Pitocin was given in the IV fluids. The placenta was delivered by expression. The uterus was cleared of all clots and debris. The uterine incision was repaired with #1 chromic in a running interlocking fashion, and a second layer the same suture was used for an imbricating layer. There was a small area of bleeding in the middle of the uterus. A [id number]-[id number] suture was placed for hemostasis. Hemostasis was achieved. The tubes and ovaries were examined and were found to be normal. The gutters were cleared of all clots and debris. The bladder flap was reapproximated using 2-0 Vicryl in a running fashion. The parietal peritoneum was closed using 2-0 Vicryl in a running fashion. The fascia was reapproximated using 0 Vicryl in a running fashion. The subcutaneous layer was copiously irrigated with warm normal saline. 5 simple interrupted sutures of 3-0 Vicryl were placed to reapproximate the subcutaneous layer. The skin was closed with 4-0 Monocryl in a subcuticular fashion. 10 cc of a 10 mg in 10 cc solution of Kenalog was injected along the incision. Steri-Strips were placed. An Aquacel dressing was placed. The uterus was expressed of a small amount of old blood. Sponge, lap, and instrument counts were correct x-2. The patient tolerated the procedure well, and was taken to PACU in stable condition. Complications: none [place] Baby 1: Infant Gender: Female Presentation: vertex Position: Left Occiput Transverse Placental Delivery Description: Expressed Cord Vessel Description: 3 Vessels and Clamped/Cut (after one minute) score (1 min): 8 score (5 min): 9 weight: 7 lb 15.1 oz Post-operative Condition: stable Disposition: PACU Aftercare: routine postop
[2022-10-13 12:10] VITALS: BP 123/73; PULSE 89; RESP 16; O2SAT 98
[2022-10-13 12:15] VITALS: BP 122/71; PULSE 94; RESP 12; O2SAT 99
[2022-10-13 12:19] VITALS: BP 123/73; PULSE 88; RESP 14; TEMP 36.8; O2SAT 99
--- NOTE | 2022-10-13 12:27 | SUR.PHASEI ---
center [facility], at bedside during recovery.
[2022-10-13 12:37] VITALS: BP 125/65; PULSE 80; RESP 16; TEMP 37
[2022-10-13] MEDS: ACETAMINOPHEN 325 MG TABLET 650 MG PO ×3 (12:57→23:59)
[2022-10-13] MEDS: KETOROLAC 30 MG/ML VIAL IV ×2 (17:34→23:58)
[2022-10-14] MEDS: KETOROLAC 30 MG/ML VIAL IV (06:12)
[2022-10-14 07:26] LABS: Hematocrit 30.1 % (36-46); Hemoglobin 10.2 g/dL (12.0-16.0)
[2022-10-14] MEDS: PRENATAL VIT,CALC/IRON/FOLIC 1 TABLET 1 TAB PO (08:12)
[2022-10-14] MEDS: ACETAMINOPHEN 325 MG TABLET 650 MG PO ×2 (08:12→13:59)
[2022-10-14] MEDS: DOCUSATE 100 MG CAPSULE PO (08:12)
[2022-10-14] MEDS: IBUPROFEN 600 MG TABLET PO (12:04)
[2022-10-14] MEDS: OXYCODONE IR 5 MG TABLET PO (14:00)
--- NOTE | 2022-10-14 17:50 | P.DS_ITS ---
Discharge Providers Provider Date of admission: 10/13/22 05:54 Discharge Date: 10/14/22 Primary care physician: Marta PRESCOTT Provider Consults: 10/13/22 12:37 Consult to Apartment Coordinator Routine Comment: Discharge provider: Dolly Colon MD Summary Hospital Course Date Patient Seen: 10/14/22 Time Patient Seen: 08:15 Diagnoses: 39 weeks gestation Previous section Keloid scar Hospital Course: Patient is a 32-year-old 2 para 2 postop day # 1 status post repeat section and keloid scar revision. Her postoperative course was unremarkable. She was tolerating a diet, ambulating independently, voiding without the catheter, pain well controlled. She is discharged home to follow-up at 1 week for Aquacel dressing removal and 6 weeks for visit. Peripartum Data Infant Delivery Method: Section Procedures: Spinal anesthesia Repeat low-transverse section Keloid scar revision complications: none [place] 1: Gender: Female Disposition of : home Status at Discharge Cognitive/behavioral status at discharge: oriented Functional status at discharge: independent ambulation Overall status at discharge: patient is progressing back to baseline Time Spent with Patient Time attestation: Total time spent providing and/or coordinating discharge services: Time spent: Less than 30 minutes Objective Labs 10/14/22 07:07 Labs: Laboratory Results - last 24 hr 10/14/22 07:07 Hgb 10.2 L Hct 30.1 L Exam Vital Signs (past 8 hours): Oxygen Delivery Method Room Air Narrative Exam Narrative: Generally: Patient is sitting up in bed, no acute distress Lungs: Clear to auscultation bilaterally Cardiovascular: Regular rate and rhythm Fundus: Firm at U -1 Incision: Clean dry and intact with Aquacel dressing Extremities: No edema Discharge Plan Discharge Plan Patient Disposition: Home Provider Discharge Comment: Call with fever, chills, redness or drainage around the incision, or bleeding vaginally more than a pad in an hour Ibuprofen 600 mg every 6 hours as needed Tylenol 650 mg every 6 hours as needed Push oral fluids Continue vitamins Discharge orders & Medications Prescriptions: New oxycodone 5 mg tablet 5 mg PO Q4H PRN (Reason: pain) Qty: 10 0RF docusate sodium [Colace] 100 mg capsule 100 mg PO DAILY Qty: 20 2RF Continued prenat.vits,stone,[id number]-[id number] Tablet 1 tab PO DAILY hydroxyzine HCl 25 mg tablet 25 mg PO TID PRN (Reason: anxiety) Qty: 30 2RF Rx Instructions: take 1/2 to 1 tab 3x/day as needed for anxiety Discontinued ondansetron 4 mg tablet,disintegrating 4 mg PO Q6H PRN (Reason: nausea and vomiting) Qty: 14 2RF Slow Fe 142 mg (45 mg iron) tablet extended release 142 mg PO DAILY No Action (DME) Double Electric Breast Pump See Rx Instructions .Route .MEDSUPPLY Qty: 1 0RF Rx Instructions: Breast pump with supplies Follow up/Referrals: Dolly Colon MD [Physician] - (1 week incision check appt: October 20 @ 1:30pm check in for a 1:45appt. 6 week appt: November 24 @ 2:45pm w/ Dr. Colon) Diet/Activity/Treatments Diet: Regular Activity: No heavy lifting Skin/Wound/Dressing Care Report to your healthcare provider any signs of infection, such as:: chills, fever, increased pain, unusual drainage and unusual redness Dressing: Do not remove Visit Report/Discharge Packet Instructions: DI for , DI for Prescription Opioid Use Stand Alone Forms: Discharge: Care, Patient Portal/API, Stroke Signs & Symptoms Discharge Data Primary Care Provider: Marta Randolph Discharges patient from system. Discharge Date/Time: 10/14/22 16:10
--- NOTE | 2022-11-12 21:28 | PM.CALLCOV.1 ---
Call Coverage Note Note Date of Patient Contact: 11/12/22 Time of Patient Contact: 20:00 Narrative of Care Provided: Dolores called complaining of pain during lifting her toddler; he is potty training and she didn't want him to have an accident. Pain lasted a few seconds and was at the site of her . Happened approx 40 min before she called answering service. No pain when we talked. Worried she tore something or is having internal bleeding. Does not notice anything on her steri strips. s/p approx 4 weeks ago Pain at incision site during activity Review that likely injury is not related to internal bleeding but to fascia damage. REcommend removing steri strips and looking at her incision now and again tomorrow to see if any bruising or hernia is present. Watch for vaginal bleeding. Provide reassurance. Call PRN
== END 2022-10-14 16:10 | disposition home or self-care (01) | DRG 788 ==
PROVIDERS: Admitting Provider Obstetrics & Gynecology; Referring Provider Obstetrics & Gynecology; Visit Provider Obstetrics & Gynecology
PROC: 10D00Z1 Extraction of Products of Conception, Low, Open Approach (ICD-10-PCS; CPT 59514; principal; 2022-10-13 07:45)
DX: O34.211 Maternal care for low transverse scar from previous cesarean delivery (principal); O99.344 Other mental disorders complicating childbirth; Z3A.39 39 weeks gestation of pregnancy; Z37.0 Single live birth; Z67.10 Type A blood, Rh positive; F41.9 Anxiety disorder, unspecified
CPT/HCPCS: 36415; 59050; 59510; 59514; 85014; 85018; 85025; 86850; 86900; 86901; J0690; J1100; J1885; J2274; J2405; J2590